=== PATIENT | male | born 1995 | race Caucasian/White ===

== ENCOUNTER 2019-05-15 08:40 | Emergency (ER) | payer SELFPAY ==
[~2019-05-15] VITALS: Ht 170.2 cm; Wt 78.0 kg
[2019-05-15] MEDS ORDERED: EPIDIOLEX100 MG/1 M PO (08:57)
== END 2019-05-15 10:23 | disposition home or self-care (01) ==
LOC: ED 08:40
DX: T40.7X5A Adverse effect of cannabis (derivatives), initial encounter (principal)
CPT/HCPCS: 80053; 85025; 96360; 99284-25; J7030